=== PATIENT | female | born 1940 | race Caucasian/White ===

== ENCOUNTER 2023-06-12 09:58 | Outpatient (AMB) | payer BC, SELFPAY ==
--- NOTE | 2023-06-12 10:35 | MHC.OFFVIS ---
Intake Intake Visit Reasons: Back pain Severity Of Illness Coordinator Required: No Assessment & Plan Assessment & Plan (1) Lumbar radiculopathy, right: Code(s): M54.16 - Radiculopathy, lumbar region (2) Neuroforaminal stenosis of lumbar spine: Code(s): M48.061 - Spinal stenosis, lumbar region without neurogenic claudication (3) Scoliosis due to degenerative disease of spine in adult patient: Code(s): M41.50 - Other secondary scoliosis, site unspecified Plan Dear colleague Today I am seeing your patient Perla Blas with a chief complaint of right-sided back pain and buttock pain. HPI: This 82-year-old female her suffering from excruciating pain on the right side of her back down to her buttock. The pain started after moving a [place] tree in August of 2023. She had an epidural steroid injection and right SI joint injection done without success. Last Saturday she had trigger point injections which gave her some relief. The pain increases with walking and standing and the only comfortable position is laying down, which completely relieves her symptoms. Normally, she is very active in the yard and doing all kinds of tasks around the house. She has not been able to do this from the pain. The left side is unaffected. She denies numbness or weakness. She comes to see me for a 2nd opinion. The following conservative treatment options were tried without success antiinflammatories, tylenol, physician guided home exercise plan, cortisone shots PMH: Hypertension, AFib, hernia repair, hysterectomy Medications: Eliquis, Atorvastatin, atenolol, vitamin-D and calcium Allergies: NKDA Social history: . Lives at home. Nonsmoker Physical Exam: Patient in agony. There is pain on palpation over the right buttock. Straight leg raise is negative. No neurological deficits from motor or sensory. Radiological Studies: MRI done at [facility] shows severe degenerative disc disease L2-3 with a unilateral collapse causing right moderate to severe L2 neural foraminal stenosis. A standing x-ray today obtain shows again the disc collapse at L2-3 causing a degenerative scoliosis at this level. Impression/Plan: This 82-year-old female is suffering from a pain located on the right side of her back radiating to the front area and buttock. This radiculopathy is most likely associated with the L2-3 degenerative scoliosis due to weigh asymmetrical disc collapse causing moderate to severe right L2 neuroforaminal stenosis. This explains that with sitting and standing her symptoms appear as gravity produces a increase of the scoliosis and an increase of the neural foraminal stenosis. The treatment would be a minimally invasive correction of the L2-3 disc collapse that will indirect the decompress the neural foramen. I would like to have a diagnostic right L2 nerve block before proceeding with surgery. If the block alleviates her symptoms then this will strengthen the indication for surgery. I made a referral to Dr. Bautista with a request to perform a right L2 nerve block. The patient will follow-up with me after the injection. Thank you for allowing me to participate in your patients care. total time spent was 50 minutes in counseling ,coordination of plan, personal review of imaging, surgical decision making and subsequent plan Peyman Newman MD, PhD Spine Fellowship Trained Neurosurgeon Director, [facility], [place] Orders: Orders XR lumbar spine 4V min Today M54.16 - Radiculopathy, lumbar region Referrals Pain Management Referral M41.50 - Other secondary scoliosis, site unspecified, M48.061 - Spinal stenosis, lumbar region without neurogenic claudication, M54.16 - Radiculopathy, lumbar region Coding Level of Care Code New Pt Level 4 (47939) Diagnoses Lumbar radiculopathy, right M54.16 Neuroforaminal stenosis of lumbar spine M48.061 Scoliosis due to degenerative disease of spine in adult patient M41.50
== END 2023-06-12 12:00 | disposition home or self-care (01) ==
PROVIDERS: Visit Provider Neurological Surgery
DX: M54.16 Radiculopathy, lumbar region (principal); M48.061 Spinal stenosis, lumbar region without neurogenic claudication; M41.50 Other secondary scoliosis, site unspecified
CPT/HCPCS: 99204

== ENCOUNTER 2023-06-12 09:58 | Outpatient (REF) | payer BC, SELFPAY ==
--- NOTE | ~2023-06-12 | XR_ITS ---
EXAMINATION: XR LUMBOSACRAL SPINE WITH OBLIQUES CLINICAL INFORMATION: Radiculopathy COMPARISON: None available. TECHNIQUE: 4 views of the lumbar spine FINDINGS: 5 nonrib-bearing lumbar-type vertebral bodies. Decreased bone normal density which decreases sensitivity for fracture evaluation. Levocurvature of the thoracolumbar junction. Slight grade 1 retrolisthesis of L2 on L3. Moderate multilevel degenerative changes disc space narrowing, endplate sclerosis, osteophyte formation, and facet arthropathy. No overt dynamic instability on flexion-extension views. Vertebral body heights and disc spaces are maintained. Posterior elements are intact. Paraspinal soft tissues are unremarkable. Atherosclerotic calcification of the abdominal aorta. Bowel gas is unremarkable. XR/XR lumbar spine 4V min IMPRESSION: 1. Decreased bone normal density which decreases sensitivity for fracture evaluation. 2. Levocurvature of the thoracolumbar junction. 3. Slight grade 1 retrolisthesis of L2 on L3. 4. Moderate multilevel degenerative changes. 5. No overt dynamic instability on flexion-extension views. 6. Atherosclerotic calcification of the abdominal aorta.
== END 2023-06-12 09:59 | disposition home or self-care (01) ==
LOC: HO.HOSX 09:58
PROVIDERS: Visit Provider Neurological Surgery
DX: M54.16 Radiculopathy, lumbar region (principal); M48.061 Spinal stenosis, lumbar region without neurogenic claudication; M41.50 Other secondary scoliosis, site unspecified
CPT/HCPCS: 72110

== ENCOUNTER 2023-07-31 11:21 | Outpatient (AMB) | payer BC, SELFPAY ==
--- NOTE | 2023-07-31 12:02 | A.SPINEOV_ITS ---
Intake Intake Visit Reasons: discuss sx Intake Note: Mrs. Blas is here today to discuss surgical options. Barrel Racer Required: No Assessment & Plan Assessment & Plan (1) Lumbar radiculopathy, right: Code(s): M54.16 - Radiculopathy, lumbar region Plan Perla is a pleasant 82-year-old female comes in today for a follow-up after previously discussing the potential for an L2-[address] Newman. He offered her a surgical solution but recommend that she go see her pain management physician for a diagnostic right-sided L2 nerve block to see if this provided added relief of symptoms. Her pain management physician sent her back to our office without completing the injection and stated that he does not believe the injection will be of any significant utility. He recommended that we go ahead with the fusion surgery rather than continue with any further nerve block injections. Perla remains consistent with her reports on previous exam. She has pain originating in her low back on the right side radiating to the sonya-lateral side / buttock. She states that her pain is completely relieved with lying down, but comes on significantly with standing/walking. This is likely due to her degenerative scoliosis with disc collapse. We again extensively reviewed the surgery that Dr. Newman and offered to her, which was in L2-3 OLLIF. We obtained her MRI disc today which was completed at [facility] and have it here in the office. Perla was given risk and benefits of surgery including but not limited to infection, hematoma, nerve injury, durotomy, weakness, bowel/bladder injury, persistent pain, as well as the option to continue with conservative treatment and patient wishes to proceed with surgery. She is aware she should stop her eliquis 3 days before surgery, and should stop her motrin / aspirin 7 days prior to surgery. All questions were answered to the best of our ability. If there is anything about this patients medical history that we have overlooked or concerns you have about us proceeding with surgery we would appreciate any input you can offer. Total amount of time spent in this visit was 20 minutes in discussion of symptoms, MRI imaging results and subsequent plan of care Orville Newman MD,PhD [facility] Coding Level of Care Code Global (91862) Diagnoses Lumbar radiculopathy, right M54.16
== END 2023-07-31 13:14 | disposition home or self-care (01) ==
PROVIDERS: Visit Provider Neurological Surgery
DX: M54.16 Radiculopathy, lumbar region (principal)
CPT/HCPCS: 99213

== ENCOUNTER → 2023-07-31 11:21 | Outpatient (BNVA) | payer BC, SELFPAY | PROVIDERS: Visit Provider Neurological Surgery ==

== ENCOUNTER 2023-11-12 05:55 | Inpatient (IN) | payer BC, SELFPAY ==
[2023-11-05 13:21] VITALS: BP 135/70; PULSE 92; RESP 18; O2SAT 96; BMI 30.3
--- NOTE | 2023-11-05 13:43 | P.CONAN_ITS ---
Documented by User: Era Puentes NP 11/05/23 13:59 HPI - Anesthesia Eval Consult details Narrative: 82yo F for L2-3 Transkambin Lumbar Interbody Fusion Medically optimized with nml labs Follows [facility] cardiology. Last office visit 06/24. Stable. (Cardiac note imbedded in clearance) No recent illness (COVID 08/24 resolved) No CP/SOB with minimal activity d/t back pain. Eliquis for afib - will hold 3 days preop Tramadol for pain PMFSH Active Problems Active Problems: All Active Problems (Updated 11/05/23 @ 13:33 by Lisandra Milian RN) Lumbar radiculopathy, right (Acute) Neuroforaminal stenosis of lumbar spine (Acute) Scoliosis due to degenerative disease of spine in adult patient (Acute) Lumbar back pain with radiculopathy affecting right lower extremity (Acute) Past Medical History Medical History (Updated 11/05/23 @ 13:33 by Lisandra Milian RN) Hard of hearing Arthritis On anticoagulant therapy Basal cell carcinoma Benign head tremor Aortic ectasia, thoracic Coronary artery calcification Elevated hemoglobin A1c Difficulty sleeping Diverticulitis Dizziness COVID-19 Hyperlipidemia HTN (hypertension) Lumbar disc disease Back pain Breast lump Macular pucker Lung nodules Nocturia Numbness Osteoarthritis Osteopenia Paroxysmal atrial fibrillation Hiatal hernia Restless leg syndrome SCC (squamous cell carcinoma) Tachycardia Family History Family history of problems with anesthesia: No Surgical History Surgical History (Updated 11/12/23 @ 06:17 by Radha Khanna) S/P Mohs surgery for basal cell carcinoma Hx of appendectomy History of pubovaginal sling History of hysterectomy Hx of esophageal hernia repair Hx of breast biopsy Hx of toe surgery H/O colonoscopy History of Problems with Anesthesia: No Social History Social History Are you a primary home care and home health aides teacher to a significant other at home: No Do you presently have visiting nurse or other home services: No Patient Tobacco Use Status: Never used Tobacco Have you been hit, kicked, punched, or otherwise hurt by someone within the past year? If so, by whom?: No Advance Directives: No Advance Directives Information Provided: No Advance Directives on File: No Recently lost weight without trying: No Eating poorly because of decreased appetite: No Nutrition Risks: No Nutritional Risk Patient : No : No Poor oral hygiene: No Meds Allergies Allergy/AdvReac Type Severity Reaction Status Date / Time nitrofurantoin Allergy Severe Stomach Verified 11/12/23 06:17 Upset Home Medications Medication Instructions Recorded Confirmed Last Taken Type acetaminophen 325 mg tablet 650 mg PO Q4H PRN Pain 11/04/23 11/12/23 11/11/23 History apixaban 5 mg tablet (Eliquis) 5 mg PO BID 11/04/23 11/12/23 11/08/23 History atenolol 100 mg tablet 100 mg PO DAILY 11/04/23 11/12/23 11/11/23 History atorvastatin 20 mg tablet 20 mg PO BEDTIME 11/04/23 11/12/23 11/11/23 History cholecalciferol (vitamin D3) 25 25 mcg PO DAILY 11/04/23 11/12/23 10/29/23 History mcg (1,000 unit) capsule chondroitin sulfate A sodium 400 400 mg PO DAILY 11/04/23 11/12/23 10/29/23 History mg capsule mirabegron 25 mg tablet,extended 25 mg PO DAILY 11/04/23 11/12/23 11/09/23 History release 24 hr (Myrbetriq) multivitamin 1 tab PO DAILY 11/04/23 11/12/23 10/29/23 History tramadol 50 mg tablet 50 mg PO Q8H PRN low back pain 11/04/23 11/12/23 11/08/23 History Exam Height,Weight and Vital Signs: Height 5 ft 6 in Weight 85.275 kg Last Vital Signs Pulse 92 11/05/23 13:21 Resp 18 11/05/23 13:21 BP 135/70 11/05/23 13:21 Pulse Ox 96 11/05/23 13:21 O2 Del Method Room Air 11/05/23 13:21 Pertinent Lab Results Pertinent Lab Results: CMP and CBC 10/2023 from outside facility WNL Narrative Narrative: EKG 10/2023 Poor data quality SR with Occ PVC LAD Nonspecific T wave abn c/w 2016, PVCs present Per cardiac note: ETT 2016, no evidence of ischemia ECHO 2015, EF 60-65% and no significant valve ds Airway Mallampati Class: II TM Dist: >3cm Neck ROM: Full Loose/Missing/Broken Teeth: Yes (Molars pulled, permanent bridge (pt unsure location)) Heart: RRR - ? PVC Lungs: CTAB Assessment and Plan Assessment Anesthesia Assessment: Anesthesia Plan Discussed and PAT Visit Final Anesthetic Review Family History of Problems with Anesthesia: No History of Problems with Anesthesia: No Documented by User: Kamari Girodano MD 11/12/23 07:35 [facility] Past Medical History Medical History (Updated 11/05/23 @ 13:33 by Lisandra Milian RN) Hard of hearing Arthritis On anticoagulant therapy Basal cell carcinoma Benign head tremor Aortic ectasia, thoracic Coronary artery calcification Elevated hemoglobin A1c Difficulty sleeping Diverticulitis Dizziness COVID-19 Hyperlipidemia HTN (hypertension) Lumbar disc disease Back pain Breast lump Macular pucker Lung nodules Nocturia Numbness Osteoarthritis Osteopenia Paroxysmal atrial fibrillation Hiatal hernia Restless leg syndrome SCC (squamous cell carcinoma) Tachycardia Surgical History Surgical History (Updated 11/12/23 @ 06:17 by Radha Khanna) S/P Mohs surgery for basal cell carcinoma Hx of appendectomy History of pubovaginal sling History of hysterectomy Hx of esophageal hernia repair Hx of breast biopsy Hx of toe surgery H/O colonoscopy Social History Social History Are you a primary home care and home health aides teacher to a significant other at home: No Do you presently have visiting nurse or other home services: No Patient Tobacco Use Status: Never used Tobacco Have you been hit, kicked, punched, or otherwise hurt by someone within the past year? If so, by whom?: No Advance Directives: No Advance Directives Information Provided: No Advance Directives on File: No Recently lost weight without trying: No Eating poorly because of decreased appetite: No Nutrition Risks: No Nutritional Risk Patient : No : No Poor oral hygiene: No Meds Allergies Allergy/AdvReac Type Severity Reaction Status Date / Time nitrofurantoin Allergy Severe Stomach Verified 11/12/23 06:17 Upset Home Medications Medication Instructions Recorded Confirmed Last Taken Type acetaminophen 325 mg tablet 650 mg PO Q4H PRN Pain 11/04/23 11/12/23 11/11/23 History apixaban 5 mg tablet (Eliquis) 5 mg PO BID 11/04/23 11/12/2311/07/24 History atenolol 100 mg tablet 100 mg PO DAILY 11/04/23 11/12/23 11/11/23 History atorvastatin 20 mg tablet 20 mg PO BEDTIME 11/04/23 11/12/23 11/11/23 History cholecalciferol (vitamin D3) 25 25 mcg PO DAILY 11/04/23 11/12/23 10/29/23 History mcg (1,000 unit) capsule chondroitin sulfate A sodium 400 400 mg PO DAILY 11/04/23 11/12/23 10/29/23 History mg capsule mirabegron 25 mg tablet,extended 25 mg PO DAILY 11/04/23 11/12/23 11/09/23 History release 24 hr (Myrbetriq) multivitamin 1 tab PO DAILY 11/04/23 11/12/23 10/29/23 History tramadol 50 mg tablet 50 mg PO Q8H PRN low back pain 11/04/23 11/12/23 11/08/23 History Exam Airway Mallampati Class: III TM Dist: <=3cm Assessment and Plan Assessment Anesthesia Assessment: Chart Reviewed Final Anesthetic Review NPO: Yes ASA Class: III Final Preanesthetic Review: No Changes in Pt Med Stat, Meds/Allgs Chart Reviewed, Consent Obtained/Reviewed and Anes Risks/Benef Reviewed Patient Risk: Intermediate Procedure Risk: Intermediate Anesthetic Plan Anesthetic Plan: GA Disposition: Standard PACU
[2023-11-12] VITALS (15 sets, daily range): BP systolic 128–180; BP diastolic 46–74; PULSE 57–89; RESP 14–18; TEMP 36–36.8; O2SAT 95–100; BMI 30.4
--- NOTE | ~2023-11-12 | FL_ITS ---
EXAMINATION: XR FLUOROSCOPY WITH IMAGES CLINICAL INFORMATION: Trans-Kambin lumbar interbody fusion. COMPARISON: Lumbar spine radiographs 06/12/2023. TECHNIQUE: Fluoroscopy Supervised By: Dr. Newman. Fluoroscopy Time: 2 minutes 18.2 seconds. Cumulative Dose: 148.006 mGy. DAP: 38.47 Gy-cm2. Images: 2. FINDINGS: Imaging demonstrates posterior pedicular screws and interbody device at most likely L2-L3. FL/FL guidance in OR IMPRESSION: Fluoroscopy and spot films provided during lumbar spine surgery.
[2023-11-12] MEDS: methocarbamoL 750 MG TABLET PO (06:25)
[2023-11-12] MEDS: Gabapentin 300 MG CAPSULE PO ×3 (06:25→20:25)
[2023-11-12] MEDS: Lactated Ringers 1,000 ML 100 ML IVCONT (06:37)
--- NOTE | 2023-11-12 06:58 | MHC.SHP ---
Pre-Procedural Eval Section A - 24 Hr Update-Section A only Date of Service: 11/12/23 The patient is an INPATIENT: No Changes since office visit: No Cold of Flu in the past 2 weeks, No New Medical Problems, No Changes in Medication and No Patient answered all questions The patient has been examined within 24 hours of the surgical procedure. The History & Physical has been completed within 30 days and I have reviewed it.: No Section B - Complete if H&P > 30 days Chief Complaint: S/P L2-3 Transkambin Allergies: Allergies Allergy/AdvReac Type Severity Reaction Status Date / Time nitrofurantoin Allergy Severe Stomach Verified 11/12/23 06:17 Upset Review of Systems Sugical H&P ROS: Negative: Constitution, Cardiovascular, Respiratory, Neurological, Psychiatric, Hem-Onc, Allergic/Immunologic, Gastrointestinal, Genitourinary, Musculoskeletal, Integumentary, Endocrine and Eyes/Ears/Nose/Throat Exam Surgical H&P Exam: Not Evaluated: HEENT, Not Evaluated: Heart, Not Evaluated: Lungs, Not Evaluated: Extremities, Not Evaluated: Abdomen, Not Evaluated: Skin and Not Evaluated: Neurological Plan Diagnosis/Plan: Unchanged L2-3 transkambin oblique lateral lumbar interbody fusion Time Spent With Patient Time: Total time managing care of this patient today __5__ minutes.
--- NOTE | 2023-11-12 08:13 | PHA.MEDREC ---
Pharmacy Consult ? Medication Reconciliation Pharmacy has completed the medication reconciliation.Checked med rec done by nursing
--- NOTE | 2023-11-12 09:22 | W.PM.OPN ---
Operative Note Operative Note Date of Service: 11/12/23 Narrative: Preoperative diagnosis: 1) L2-3 degenerative disc disease; right lumbar radiculopathy Postprocedure diagnosis: 1) same as above Procedure: 1) L2-3 oblique lateral lumbar interbody fusion with discectomy, preparation of the endplates and placement of a titanium bullet cage packed with allograft, anterior to the transverse process in modified prone position, with intraoperative biplanar fluoroscopy imaging and electrophysiological monitoring 2) L2-3 posterior minimally invasive pedicle screw placement and posterior lateral instrumentation and fusion with intraoperative biplanar fluoroscopic imaging and electrophysiological monitoring 3 L2-3 injection of 0.75 Marcaine in paravertebral tissue for postop management Consent Informed Consent was obtained for this operation. I have explained the nature, purpose and benefits of the operation. I have discussed the risks and benefit of the operation including possible complications or adverse events with patient/family. Alternative(s) were discussed with the patient with their relative benefits and risks as well as the consequences of not accepting the operation were included in obtaining consent. Surgeon: DAI ARTHUR MD, PHD Procedure Assisted By: iman Ko Description of Procedure: This is a complex surgery on the lumbar spine and an critical care physician assistant as needed for safety of the surgery for setup of instrumentation, retraction and closing. History: This patient is suffering from a right sided back pain. MRI shows lumbar degenerative disc disease L2-3. The patient was offered an oblique lumbar lateral interbody fusion followed by a posterior lateral instrumented fusion L2-3. The procedure and complications were explained and the patient was consented. Procedure: The patient was brought to the operating room and endotracheally intubated. The patient was positioned on the Evans spine table in a modified prone position for ease of access from the left side.. 2C arms were installed for fluoroscopy. Prepping and draping was done followed by timeout. The landmarks, including spinal processes, transverse processes, disc space, endplates and pedicles are identified and marked. The following steps are taken for each specified level: L2-3 level: Cage size 10 mm high and 30 mm long titanium . The patient was turned using the rotation of the surgical table so a near direct anterior lateral approach to the lumbar spine could be achieved. A small incision was then made superior to the mid iliac crest and then using biplanar fluoroscopy visualization, under electrophysiological monitoring and stimulation, we introduced an electrophysiological probe through the retroperitoneal space into the desired disc anterior to the transverse process and then passed it into the disc space after finding a silent window. The sleeve was retained and the probe was removed, then the K wire was passed sequentially into the disc space. A dilating tube was then passed along the same route. Following this, a working channel, a working channel was then passed sequentially into the disc space. The working channel was manually held in position while a series of disc cleaning tools were passed through the channel to remove the affected disc under clear and direct biplanar fluoroscopic visualization, decompress the nerve roots and equal corticated vertebral endplates at this segment. Arthrodesis of the intervertebral space via an anterior retroperitoneal exposure was achieved through Kambin's [place] and lateral extraforaminal space. Allograft was added into the anterior disc space. The working channel was then removed. A titanium interbody cage tightly packed with allograft was then inserted into the midportion of the intervertebral disc space over a K-wire under biplanar fluoroscopic visualization and intraoperative neuro monitoring. The inter pedicular and intradiscal space was significantly enlarged and disc height was restored to worked normal anatomy there for releasing pressure on the nerve roots visual largely the spinal canal and lateral recess as well as foramen were bilateral decompressed and all bones were confined to the borders of the disc space . The following steps are then taken for each specified level: L2-3 level: Bilateral L2 and L3 screws with a diameter of 5.5 x 45 mm. The posterolateral fusion is initiated after the patient is rotated to a true prone position. The entry point to the pedicle is identified in the AP and lateral views and then the skin incision is injected with local anesthetic. We entered the pedicle with the pediguard tap after which a K-wire was introduced into the vertebral body. Additionally, I used a small periosteal decorticator along the screws to refresh the surface of the bone and facet and I put some amount of allograft for additional stability for the posterolateral fusion. Over the K-wire we insert pedicle screws bilaterally. After the screws were placed, we put the roberto carlos in place and under fluoroscopic imaging, we locked the roberto carlos in place and removed the screw tops and then each incision has been closed with 0 Vicryl for the fascia and a 3-0 Vicryl for the subdermal layer. Steri-Strips were used to approximate the incisions. An OpSite with Tegaderm was used to cover the incision. Final x-rays and AP and lateral projection showed good position of the interbody device and instrumentation. All sponge and needle counts were correct. The patient was extubated and transported in a stable condition to the recovery room. 2-0 Vicryl This procedure was done with the aid of a physician critical care physician assistant as a qualified resident was not available. Anesthesia: General Estimated Blood Loss (ml): 10 mL Specimen: None Duration of Surgery: 60 minutes Postoperative Plan: Admit to inpatient
[2023-11-12] MEDS: 0.9 % Sodium Chloride 1,000 ML 75 ML IVCONT (12:43)
[2023-11-12] MEDS: Acetaminophen 1,000 MG/100 ML PIGGYBACK 400 MG IV ×2 (13:32→20:24)
[2023-11-12] MEDS: ceFAZolin Sodium/Dextrose,Iso 2 GM/50 ML PIGGYBACK IV ×2 (13:58→20:24)
--- NOTE | 2023-11-12 14:24 | HO.POSTANES ---
Post Anesthesia Evaluation Post Anesthesia Evaluation Date of Service: 11/12/23 Vital Signs: Vital Signs Temp Pulse Resp BP Pulse Ox O2 Del Method O2 Flow Rate 11/12/23 12:34 96.8 F 65 18 162/71 H 95 Nasal Cannula 2 11/12/23 11:45 98 F 64 16 128/61 96 Nasal Cannula 2 11/12/23 11:30 62 14 148/49 H 96 Nasal Cannula 2 11/12/23 11:15 61 15 143/47 H 96 Nasal Cannula 2 11/12/23 11:00 64 14 151/53 H 96 Nasal Cannula 2 11/12/23 10:45 60 14 150/54 H 96 Nasal Cannula 2 11/12/23 10:30 59 16 145/52 H 96 Nasal Cannula 3 11/12/23 10:15 65 16 142/46 H 96 Nasal Cannula 3 11/12/23 10:00 61 16 165/61 H 100 Simple Mask 6 11/12/23 09:55 58 16 159/60 H 100 Simple Mask 6 11/12/23 09:50 61 16 137/74 100 Simple Mask 6 11/12/23 09:46 98 F 57 16 160/62 H 100 Simple Mask 6 11/12/23 06:15 98.2 F 62 16 180/64 H 98 Room Air Anesthesia: General Endotracheal-GETA Mental Status: Awake Pain Control: Satisfactory (pain difficult to control) Nausea/Vomiting: None Hydration: Adequate Anesthesia-Related Issues: No Anes. Related Issues
[2023-11-12] MEDS: hydrOXYzine HCL 10 MG TABLET PO ×2 (14:48→20:25)
[2023-11-12] MEDS: HYDROmorphone HCl 1 MG/ML SYRINGE IVPUSH (14:55)
[2023-11-12] MEDS: oxyCODONE HCl Immed Release 5 MG TABLET 10 MG PO ×2 (18:10→23:21)
[2023-11-12] MEDS: Atorvastatin Calcium 20 MG TABLET PO (20:25)
[2023-11-12] MEDS: Docusate Sodium 100 MG CAPSULE PO (20:25)
[2023-11-13] MEDS: ceFAZolin Sodium/Dextrose,Iso 2 GM/50 ML PIGGYBACK IV (02:04)
[2023-11-13] MEDS: Acetaminophen 1,000 MG/100 ML PIGGYBACK 400 MG IV ×2 (02:05→08:40)
[2023-11-13] MEDS: 0.9 % Sodium Chloride 1,000 ML 75 ML IVCONT (02:26)
[2023-11-13 04:00] VITALS: BP 146/66; PULSE 63; RESP 16; TEMP 36.2; O2SAT 97
[2023-11-13] MEDS: oxyCODONE HCl Immed Release 5 MG TABLET 10 MG PO ×3 (05:27→13:45)
[2023-11-13] MEDS: HYDROmorphone HCl 1 MG/ML SYRINGE IVPUSH (06:39)
[2023-11-13 06:52] VITALS: BP 145/64; PULSE 60; RESP 18; TEMP 36.6; O2SAT 97
[2023-11-13] MEDS: Gabapentin 300 MG CAPSULE PO (08:43)
[2023-11-13] MEDS: hydrOXYzine HCL 10 MG TABLET PO (08:43)
[2023-11-13] MEDS: Cholecalciferol (Vitamin D3) 25 MCG TABLET PO (08:43)
[2023-11-13] MEDS: Mirabegron 25 MG TAB.ER.24H PO (08:43)
[2023-11-13] MEDS: Multivitamin TABLET 1 TAB PO (08:43)
[2023-11-13] MEDS: atenoloL 100 MG TABLET PO (08:43)
[2023-11-13] MEDS: Docusate Sodium 100 MG CAPSULE PO (08:44)
--- NOTE | 2023-11-13 08:58 | PM.DS ---
DS: Providers Provider Date of Service: 11/13/23 Date of admission: 11/12/23 05:55 Primary care physician: Olimpia Cuba MD DS: Summary Time Attestation Discharge Coordination Time (in mins): 25 Quality: Safe Use of Opioids Does Pt have an Active Cancer Diagnosis on the Problem List?: No Quality: Stroke Does the patient have a stroke diagnosis?: No Physical Exam Vital Signs: Vital Signs: Last Vital Signs Temp 97.8 F 11/13/23 06:52 Pulse 60 11/13/23 06:52 Resp 18 11/13/23 06:52 BP 145/64 H 11/13/23 06:52 Pulse Ox 97 11/13/23 06:52 O2 Del Method Nasal Cannula 11/13/23 06:52 O2 Flow Rate 2 11/13/23 06:52 BMI result Body Mass Index 30.4 Discharge Plan Discharge Anticipated Discharge Date/Time: 11/13/23 08:58 Patient Disposition: Home, Self-Care Discharge Diagnosis: S/P L2-3 transkambin lumbar fusion Referrals: Olimpia Cuba MD [Primary Care Provider] - 1 Week Discharge Medications: New oxycodone 5 mg tablet 5 mg PO Q6H PRN (Reason: severe pain (scale score 7-10)) Qty: 30 0RF Rx Instructions: Partial Fill upon patient request. Continued multivitamin Tablet 1 tab PO DAILY acetaminophen 325 mg Tablet 650 mg PO Q4H PRN (Reason: Pain) atorvastatin 20 mg tablet 20 mg PO BEDTIME atenolol 100 mg tablet 100 mg PO DAILY chondroitin sulfate A sodium 400 mg Capsule 400 mg PO DAILY cholecalciferol (vitamin D3) 25 mcg (1,000 unit) Capsule 25 mcg PO DAILY Myrbetriq 25 mg tablet extended release 24 hr 25 mg PO DAILY Eliquis 5 mg tablet 5 mg PO BID Held tramadol 50 mg tablet 50 mg PO Q8H PRN (Reason: low back pain) Hold Instructions: Resume on 11/13/23. replace with oxycodone for post-operative pain Discharge Orders: Discharge Order (Routine); Ordered 11/13/23 Ordered By: Orville Marmolejo Diet: Advance to usual diet Activity on Discharge: As tolerated Stand Alone Forms: Patient Portal Discharge page Activity Restrictions/Additional Instructions: After your spinal surgery we ask you to observe the following restrictions/guidelines: Activity: With lumbar fusion surgery it is normal to have days in the first couple of weeks where you have increased leg pain. This usually lasts 1-2 days and self resolves with the continuation of medication. Attempt to stay mobile and continue activity as tolerated. It is normal to feel some discomfort as you increase your activity, but that will improve with time. We ask you avoid heavy lifting or activities that cause pain. As a general rule, 8lbs is a safe limit for lifting right after surgery. Walk as much as you feel comfortable but not to exhaustion. You will feel extra tired the first few days after surgery. Stay well hydrated. It is OK to walk up and down stairs You may return to driving when you are off narcotics (such as vicodin, oxycodone, dilaudid, etc), and you are back to normal functional capacity. If you have any concerns please check with office before driving. Return to work is specific to each patient and each surgery, so please speak with your doctor/PA at first follow up. Please bring paperwork such as FMLA at that time if you need it filled out. Medications: It is recommended that you take Tylenol 500 mg every 4 hours for the 1st week postoperatively, ?alongside ibuprofen 600 mg every 8 hours. We will give you a short supply of narcotics after surgery (usually one weeks worth). ??Please use this for breakthrough pain that is refractory to the Tylenol / ibuprofen. If you need more please call the office but do not use more than prescribed. You will need to give our office 48 hours notice if you need narcotics refilled and we do not fill narcotics on weekends or evenings. If you are on a narcotic, it is a good idea to take a stool softener such as colace or senna to avoid constipation If you take blood thinner such as aspirin, Plavix, Coumadin, Effient, Eliquis etc for conditions such as Afib, DVT, Pulmonary embolus, coronary disease, stents etc please speak with your surgeon about specific details as to when you can resume these medications. You can resume NSAIDs on post op day 1 (eg: Motrin, Naproxen, etc). Follow up: Please call the office, , after surgery to arrange a 3 week follow up for wound check. Wound Care: You may remove your dressing on the first day after surgery. ?You may ?leave open to air. Please do not remove the steri strips underneath. they will fall off on their own in one week. IT IS NORMAL FOR THE WOUND TO OOZE OR BE BLOODY FOR A FEW DAYS AFTER SURGERY. ?IF THIS HAPPENS JUST PLACE NEW DRESSING OVER IT TO AVOID STAINING CLOTHES. You may shower on post op day # 1 We ask that you do not let the water soak the wound. If it does get wet, just towel dry lightly. Please do not scrub your incision or place any type of chemical/ointment on the wound. No tub baths, pools or jacuzzis for one month. If you have any leaking or redness from your wound, or fevers, please call office Care Plan Goals: Return to normal activity as tolerated Health Concerns: None Plan of Treatment: Follow-up in clinic in 2-3 weeks Assessment: POD: 1 Procedure: L2-3 transkambin lumbar fusion Perla was seen on this morning sitting in her recliner near the window accompanied by her . She reports she is up, walking around, and is otherwise doing well. She feels her symptoms are much better than pre-operatively. She states she feels very good, no longer is reporting right-sided radicular pain. She is voiding well, ambulating to the bathroom, and tolerating diet. Afebrile, vital signs stable. No new neurological deficits. Full strength in bilateral LE's. Back dressings are dry without signs of staining. No active sanguineous drainage. Plan: Patient meets criteria to be medically discharged home. This was discussed with the attending Neurosurgeon. Orville Newman MD,PhD [facility]
--- NOTE | 2023-11-13 08:58 | HO.POSTANES ---
Post Anesthesia Evaluation Post Anesthesia Evaluation Date of Service: 11/13/23 Vital Signs: Vital Signs Temp Pulse Resp BP Pulse Ox O2 Del Method O2 Flow Rate 11/13/23 06:52 97.8 F 60 18 145/64 H 97 Nasal Cannula 2 11/13/23 04:00 97.1 F 63 16 146/66 H 97 Nasal Cannula 1 Anesthesia: General Endotracheal-GETA Mental Status: Awake Pain Control: Satisfactory Nausea/Vomiting: None Hydration: Adequate Anesthesia-Related Issues: No Anes. Related Issues
[2023-11-13 09:02] VITALS: PULSE 74; O2SAT 94
--- NOTE | 2023-11-13 09:27 | MHC.CM.PN ---
Female 82 s/p lumbar surgery She lives with her spouse. She is independent with all functional mobility. DP home with family support and transport. She is discharged today.
--- NOTE | 2023-11-13 12:58 | HO.NEURO.PN ---
Neurosurgery Operative Note Date of Service: 11/13/23 Narrative: POD: 1 Procedure: L2-3 transkambin lumbar fusion Perla was seen on this morning sitting in her recliner near the window accompanied by her . She reports she is up, walking around, and is otherwise doing well. She feels her symptoms are much better than pre-operatively. She states she feels very good, no longer is reporting right-sided radicular pain. She is voiding well, ambulating to the bathroom, and tolerating diet. Afebrile, vital signs stable. No new neurological deficits. Full strength in bilateral LE's. Back dressings are dry without signs of staining. No active sanguineous drainage. Plan: Patient meets criteria to be medically discharged home. This was discussed with the attending Neurosurgeon. Orville Newman MD,PhD [facility]
== END 2023-11-13 13:58 | disposition home or self-care (01) | DRG 304 ==
LOC: HO.SSSA 05:59 → HO.S3 11:22
PROVIDERS: Admitting Provider Neurological Surgery; PCP Internal Medicine; Visit Provider Neurological Surgery
PROC: 0SG00A0 Fusion of Lumbar Vertebral Joint with Interbody Fusion Device, Anterior Approach, Anterior Column, Open Approach (ICD-10-PCS; principal; 2023-11-12 07:30)
DX: M51.16 Intervertebral disc disorders with radiculopathy, lumbar region (principal); I48.0 Paroxysmal atrial fibrillation; Z79.01 Long term (current) use of anticoagulants; Z79.899 Other long term (current) drug therapy
CPT/HCPCS: 86850; 86900; 86901; 97161; 97535; C1713; C9290; J0131; J0665; J0690; J1170; J2704; J3010; L8699

== ENCOUNTER → 2023-11-12 05:55 | Outpatient (BNV) | payer BC, SELFPAY ==
--- NOTE | 2023-11-13 12:56 | HO.SPINEOV ---
Intake Intake Visit Reasons: S/P L2-3 Transkambin Allergies nitrofurantoin Allergy (Severe, Verified 11/12/23 06:17) Stomach Upset Assessment & Plan Assessment & Plan Medications: On Hold tramadol Hold Comment: Resume on 11/13/23. replace with oxycodone for post-operative pain 50 mg PO Q8H PRN low back pain Coding
== END ==
PROVIDERS: Admitting Provider Neurological Surgery; PCP Internal Medicine; Visit Provider Neurological Surgery
DX: M51.16 Intervertebral disc disorders with radiculopathy, lumbar region (principal)
CPT/HCPCS: 20930; 22558; 22612; 22840; 22853; 63056; 99024; 99499

== ENCOUNTER 2023-11-17 14:53 | Outpatient (REF) | payer BC, SELFPAY | END 2023-11-17 14:54 | disposition home or self-care (01) | LOC: HO.HOSX 14:53 | PROVIDERS: Visit Provider Physician Assistant | DX: Z13.89 Encounter for screening for other disorder (principal) ==

== ENCOUNTER 2023-11-19 12:55 | Outpatient (REF) | payer BC, SELFPAY ==
--- NOTE | ~2023-11-19 | XR_ITS ---
EXAMINATION: XR LUMBOSACRAL SPINE WITH OBLIQUES CLINICAL INFORMATION: Lumbar spine postsurgical follow-up COMPARISON: Lumbar spine x-ray on 06/12/2023 TECHNIQUE: AP, both oblique, and lateral views of the lumbar spine. Lateral flexion and extension view of the lumbosacral spine. FINDINGS: The visualized lumbar vertebrae are intact with normal alignment. There is L2-L3 spinal fusion with metallic intervertebral spacer, posterior fixation with transpedicular screws and vertical bars Intervertebral disc are in space is markedly reduced at L1-L2. Alignment of lumbar spine is normal and stable in flexion and extension. XR/XR lumbar spine 4V min IMPRESSION: 1. Interval L2-L3 spinal fusion, posterior fixation. 2. No fracture or dislocation of lumbar spine is seen. 3. Normal stable lumbar spine alignment in flexion and extension is demonstrated.
== END 2023-11-19 12:56 | disposition home or self-care (01) ==
LOC: HO.HOSX 12:55
PROVIDERS: PCP Internal Medicine; Visit Provider Physician Assistant
DX: Z98.1 Arthrodesis status (principal)
CPT/HCPCS: 72110

== ENCOUNTER 2023-11-19 12:55 | Outpatient (AMB) | payer BC, SELFPAY ==
--- NOTE | 2023-11-19 13:47 | A.SPINEOV_ITS ---
Intake Intake Visit Reasons: post wound care with Xray Allergies nitrofurantoin Allergy (Severe, Verified 11/12/23 06:17) Stomach Upset Assessment & Plan Assessment & Plan (1) S/P lumbar fusion: Code(s): Z98.1 - Arthrodesis status Plan Perla came in today for a add on appointment to evaluate her severe pain since her surgery last week. I have discussed this issue several times with her daughter Jasmin, and we have adjusted her medication regimen which initially was monotherapy with oxycodone, and now includes gabapentin, Robaxin, and Dilaudid. She was evaluated alongside JORGE Wan, who discussed her recent symptoms in detail as well. In summary, Perla has had difficulty with ambulation has been largely utilizing a walker to get around her home. She has been waking up several times each night (almost hourly) stating that she is in pain and has had much difficulty reintegrating into her activities of daily living. We had x-ray imaging completed in office today which shows stable placement of the surgical construct. We encouraged her that she is likely having an acute inflammatory response to the surgery, and that her imaging is reassuring. It was decided that we will increase her dosing to allow for 1-2 tablets of Dilaudid to be taken every 6 hours in order to get her through this more acute phase of postoperative pain. She currently has both her daughter and her at home around the clock taking care of her and helping her to administer medications. We will continue routine follow-up with Perla, until her situation is more manag eable. For the time being I refilled her ancillary medications alongside changing her Dilaudid and refilling it to 1-2 tablets per admin. Orville Newman MD,PhD [facility] Medications: Changed From hydromorphone Partial Fill upon patient request. 4 mg PO Q6H PRN 28 tabs 0RF severe pain (scale score 7-10) To hydromorphone 4 mg orally Take 1-2 tabs every 6 hours as needed for severe pain PRN; Partial Fill upon patient request. Patient may refill early. 28 tabs 0RF severe pain (scale score 7-10) Refilled gabapentin 300 mg PO TID 60 caps 0RF nerve pain methocarbamol 750 mg PO TID 30 tabs 0RF Coding Level of Care Code Global (13063) Diagnoses S/P lumbar fusion Z98.1
== END 2023-11-19 13:59 | disposition home or self-care (01) ==
PROVIDERS: PCP Internal Medicine; Visit Provider Physician Assistant
DX: Z98.1 Arthrodesis status (principal)
CPT/HCPCS: 99024

== ENCOUNTER 2023-12-04 09:15 | Outpatient (AMB) | payer BC, SELFPAY ==
--- NOTE | 2023-12-04 09:24 | A.SPINEOV_ITS ---
Intake Intake Visit Reasons: 1st post op Intake Note: Ms. Blas is here today for 1st Post-op. 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 To recap, Perla had a complicated postoperative course which was likely due to an acute inflammatory reaction after surgery. She did disclose that this has happened to her previously and did not acknowledge it at the time of surgery. She has a poor tolerance for pain in her body seems to produce quite a bit of inflammation after she is exposed to procedural trauma. Thankfully, Perla reports that she is doing much better than she was previously. Her pain is well controlled and she is only taking 2-3 Dilaudid daily. She is off, ambulating around her home without the need for a walker or a cane. She is cooking dinner and completing ADLs around the home. Her transformation since our last visit is really night and day. She was even inquiring during this visit on whether or not she could use a airframe and powerplant mechanic around her home. No new neurological deficits. The patient is able to ambulate well without the assistance of a cane. Her posterior incision sites appear closed and well healed. Perla daughter will be returning to her home which is a couple of hours for where Perla is currently living. She requested that I refill all of Perla available medications so they can be into daily dosing pill packs. I will complete all available refills for her in order to aid the family in Perla's postoperative care. We will follow up again with Perla in 6 weeks, at which time we will get a final set of x-rays. Orville Newman MD,PhD [facility] Medications: Changed From hydromorphone 4 mg orally Take 1 tab every 6 hours as needed for severe pain PRN; Partial Fill upon patient request. Patient may refill early. 7 days 28 tabs 0RF severe pain (scale score 7-10) To hydromorphone 4 mg orally Take 1 tab every 8 hours as needed for severe pain PRN; Partial Fill upon patient request. Patient may refill early. 7 days 28 tabs 0RF severe pain (scale score 7-10) Refilled gabapentin 300 mg PO TID 60 caps 0RF nerve pain methocarbamol 750 mg PO TID 30 tabs 0RF Coding Level of Care Code Global (61009) Diagnoses S/P lumbar fusion Z98.1
== END 2023-12-04 09:56 | disposition home or self-care (01) ==
PROVIDERS: PCP Internal Medicine; Visit Provider Physician Assistant
DX: Z98.1 Arthrodesis status (principal)
CPT/HCPCS: 99024

== ENCOUNTER → 2023-12-04 09:15 | Outpatient (BNVA) | payer BC, SELFPAY | PROVIDERS: PCP Internal Medicine; Visit Provider Physician Assistant ==

== ENCOUNTER 2024-01-15 15:21 | Outpatient (REF) | payer BC, SELFPAY | END 2024-01-15 15:22 | disposition home or self-care (01) | LOC: HO.HOSX 15:21 | PROVIDERS: Visit Provider Physician Assistant | DX: Z13.89 Encounter for screening for other disorder (principal) ==

== ENCOUNTER 2024-01-16 09:07 | Outpatient (REF) | payer BC, SELFPAY ==
--- NOTE | ~2024-01-16 | XR_ITS ---
EXAMINATION: XR LUMBOSACRAL SPINE CLINICAL INFORMATION: Arthrodesis status COMPARISON: Lumbar spine 11/19/2023 TECHNIQUE: 4 views of the lumbar spine, inclusive of flexion and extension views, were obtained. FINDINGS: There 5 nonrib-bearing lumbar-type vertebral bodies. The height of vertebral bodies is well-maintained. There is disc space narrowing at L1-L2. There is L2-L3 spinal fusion with metallic intervertebral spacer, posterior fixation with transpedicular screws and vertical bars. Hardware is intact. Alignment of the lumbar spine is normal and stable on flexion and extension. XR/XR lumbar spine 4V min IMPRESSION: 1. L2-L3 spinal fusion without evidence of hardware complication. 2. Degenerative disc disease at L1-L2. 3. No instability.
== END 2024-01-16 09:08 | disposition home or self-care (01) ==
LOC: HO.HOSX 09:07
PROVIDERS: Visit Provider Physician Assistant
DX: Z98.1 Arthrodesis status (principal)
CPT/HCPCS: 72110

== ENCOUNTER 2024-01-16 09:07 | Outpatient (AMB) | payer BC, SELFPAY ==
--- NOTE | 2024-01-16 09:39 | A.SPINEOV_ITS ---
Intake Visit Reasons: 2nd post op with x rays Intake Note: Ms. Blas is here today for 2nd post-op appointment with x-rays. 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 She states she continues to do very well and is completing all of her activities of daily living without significant issue. She is going for daily walks in his completely stopped her narcotic pain medication. Currently, she is taking gabapentin and Tylenol to help ameliorate her symptoms, as she still has some tenderness/pain in her low back. Overall she is doing very well, and states she is very happy with the surgery. She has no longer suffering from her intractable low back pain as she was prior. We reviewed her x-ray imaging that was completed in office today which shows stable placement of her surgical construct with no changes from fluoroscopy. She asked several questions regarding postoperative healing course which I answered to the best of my ability. No new neurological deficits. Patient is able to ambulate well without assistance, rises from a seated position without difficulty. I would like to follow up with Perla again in 2 months to ensure that she continues to make satisfactory progress. If she continues to report a slower healing course I will consider the possibility of physical therapy. Orville Newman MD,PhD [facility] Orders: Orders XR lumbar spine 4V min Today Z98.1 - Arthrodesis status Coding Level of Care Code Global (59070) Diagnoses S/P lumbar fusion Z98.1
== END 2024-01-16 10:02 | disposition home or self-care (01) ==
PROVIDERS: PCP Internal Medicine; Visit Provider Physician Assistant
DX: Z98.1 Arthrodesis status (principal)
CPT/HCPCS: 99024

== ENCOUNTER → 2024-01-16 09:07 | Outpatient (BNVA) | payer BC, SELFPAY | PROVIDERS: PCP Internal Medicine; Visit Provider Physician Assistant | DX: Z98.1 Arthrodesis status (principal) ==

== ENCOUNTER 2024-03-19 08:59 | Outpatient (AMB) | payer BC, SELFPAY ==
--- NOTE | 2024-03-19 09:24 | HO.SPINEOV ---
Intake Visit Reasons: 2 months f/up Intake Note: Ms. Blas is here for a 2month F/u. Manager Product Marketing Required: No Allergies nitrofurantoin Allergy (Severe, Verified 03/19/24 09:32) Stomach Upset Assessment & Plan Assessment & Plan (1) S/P lumbar fusion: Code(s): Z98.1 - Arthrodesis status Category: Surgical Plan Perla comes in today for a subsequent follow-up visit after she had a L2-3 transkambin lumbar fusion completed about 4 months ago. She continues to do very well since her surgery. She states she has been getting outside, gardening and watering her plants. She has been setting a goal to walk 1 mi per day as we previously discussed. Of note, her recently had a hip replacement surgery about a month ago and she has been able to care for/help him through this. She is overall healing very well, and has some left-sided posterior buttocks pain but feels this waxes/wanes throughout the day. No new neurological deficits. The patient ambulates well without an antalgic gait with no assistive devices. Perla is doing very well since her surgery despite a somewhat complicated postoperative course with her pain control. There is no need for continued routine follow-up with Perla, she may be discharged as a patient. Orville Newman MD,PhD [facility] Coding Level of Care Code Global (24563) Diagnoses S/P lumbar fusion Z98.1
== END 2024-03-19 09:58 | disposition home or self-care (01) ==
PROVIDERS: PCP Internal Medicine; Visit Provider Physician Assistant
DX: Z98.1 Arthrodesis status (principal)
CPT/HCPCS: 99212

== ENCOUNTER → 2024-03-19 08:59 | Outpatient (BNVA) | payer BC, SELFPAY | PROVIDERS: PCP Internal Medicine; Visit Provider Physician Assistant ==